=== PATIENT | female | born 1950 | race Caucasian/White ===

== ENCOUNTER → 2016-10-28 | Outpatient (CLI) | payer OTHER ==
[~2016-10-28] MED LIST: ADVIL200 MG PO; ESTRACE PO; HCTZ 25MG TAB25 MG PO; LODINE500 MG PO; PRINIVIL10 MG PO; PROZAC 20MG20 MG PO; PROZAC40 MG PO; REXULTI0.5 MG PO; TOPAMAX50 MG PO; WELLBUTRIN PO; WELLBUTRIN XL300 M1 PO; ZOCOR 20MG20 MG PO; ZOCOR 40MG40 MG PO; ZOLOFT 100MG100 MG; ZOLOFT100 MG PO
== END ==
LOC: BHSO 08:14
DX: F33.42 Major depressive disorder, recurrent, in full remission (principal)

== ENCOUNTER → 2016-11-09 | Outpatient (CLI) | payer OTHER | LOC: BHSO 14:47 | DX: F33.41 Major depressive disorder, recurrent, in partial remission (principal) ==

== ENCOUNTER → 2016-11-23 | Outpatient (CLI) | payer OTHER | LOC: BHSO 08:13 | DX: F33.42 Major depressive disorder, recurrent, in full remission (principal) ==

== ENCOUNTER → 2017-01-25 | Outpatient (CLI) | payer OTHER | LOC: BHSO 13:49 | DX: F33.41 Major depressive disorder, recurrent, in partial remission (principal) ==

== ENCOUNTER → 2017-02-13 | Outpatient (CLI) | payer OTHER | LOC: COL.RAD 07:47 | DX: E34.9 Endocrine disorder, unspecified (principal); E83.52 Hypercalcemia | CPT/HCPCS: A9500 ==

== ENCOUNTER → 2017-03-29 | Outpatient (CLI) | payer OTHER | LOC: BHSO 15:16 | DX: F33.2 Major depressive disorder, recurrent severe without psychotic features (principal) ==

== ENCOUNTER → 2017-04-03 | Outpatient (CLI) | payer OTHER | LOC: MC.RAD 07:30 | DX: R92.2 Inconclusive mammogram (principal); N63 Unspecified lump in breast ==

== ENCOUNTER 2017-04-06 17:32 | Emergency (ER) | payer OTHER ==
[2008-09-22 21:37] VITALS: BP 119/71
[~2017-04-06] VITALS: Ht 167.6 cm; Wt 85.0 kg
[2017-04-06 17:40] VITALS: TEMP 99.3
[2017-04-06 18:19] LABS: BASO % 0.5 % (0.0-2.0); EOS # 0.2 (0.0-0.7); GRAN # 3.6 (1.4-6.5); GRAN % 44.9 % (42.2-75.2); HEMATOCRIT 42.7 % (37.0-47.0); HEMOGLOBIN 14.4 g/dl (12.5-16.0); LYMPH # 3.6 (1.2-3.4); LYMPH % 44.6 % (20.0-51.0); MEAN CELL VOLUME 87 fl (80.0-100.0); MEAN CORPUSCULAR HEMOGLOBIN 29 pg (27.0-31.0); MEAN CORPUSCULAR HGB CONC 34 g/dl (33.0-37.0); MEAN PLATELET VOLUME 10.8 fl (7.4-10.4); MONO # 0.6 (0.1-0.6); MONO % 7.6 % (1.7-9.3); PLATELET COUNT 285 K/mm3 (130-400); RED BLOOD COUNT 4.93 M/mm3 (4.10-5.30); REDCELL DISTRIBUTION WIDTH-CV 12.6 % (11.5-14.5); WHITE BLOOD COUNT 8.1 K/mm3 (4.8-10.8)
[2017-04-06 18:37] LABS: AMPHETAMINE URINE NEGATIVE; BARBITURATES URINE NEGATIVE; BENZODIAZEPINES URINE NEGATIVE; BUPRENORPHINE URINE NEGATIVE; METHADONE URINE NEGATIVE; OPIATES URINE NEGATIVE; OXYCODONE URINE NEGATIVE; PHENCYCLIDINE URINE NEGATIVE; PROPOXYPHENE URINE NEGATIVE; THC CANNABINOIDS URINE NEGATIVE
[2017-04-06 18:48] LABS: ADJUSTED CALCIUM 9.7 mg/dL (8.4-10.2); ALANINE AMINOTRANSFERASE 25 U/L (9-52); ALBUMIN 4.6 gm/dL (3.5-5.0); ALKALINE PHOSPHATASE 83 U/L (50-136); ANION GAP 15 mmol/L (7-16); BILIRUBIN,TOTAL 0.6 mg/dL (0.0-1.0); BLOOD UREA NITROGEN 15 mg/dL (7-17); CALCIUM 10.2 mg/dL (8.4-10.2); CARBON DIOXIDE 19 mmol/L (22-30); CHLORIDE 109 mmol/L (98-107); CREATININE, serum 1.04 mg/dL (0.52-1.25); GLUCOSE 89 mg/dL (74-106); POTASSIUM 3.5 mmol/L (3.4-5.0); SODIUM 142 mmol/L (137-145); TOTAL PROTEIN 7.4 gm/dL (6.4-8.2)
[2017-04-06 18:49] LABS: ACETAMINOPHEN < 10 ug/mL (10-30); SALICYLATE < 1.0 mg/dL
[2017-04-06 22:47] VITALS: BP 118/61; PULSE 76
== END 2017-04-07 | disposition short-term general hospital (02) ==
LOC: COL.ER 17:32
PROVIDERS: Nurse Practitioner
DX: F32.9 Major depressive disorder, single episode, unspecified (principal); F41.9 Anxiety disorder, unspecified; Z87.891 Personal history of nicotine dependence; Z90.710 Acquired absence of both cervix and uterus; Z90.49 Acquired absence of other specified parts of digestive tract; Z90.89 Acquired absence of other organs

== ENCOUNTER → 2017-04-21 | Outpatient (CLI) | payer OTHER | LOC: BHSO 09:55 | DX: F33.41 Major depressive disorder, recurrent, in partial remission (principal) ==

== ENCOUNTER → 2017-05-05 | Outpatient (CLI) | payer OTHER | LOC: BHSO 15:35 | DX: F33.2 Major depressive disorder, recurrent severe without psychotic features (principal) ==

== ENCOUNTER → 2017-05-11 | Outpatient (CLI) | payer OTHER | LOC: BHSO 15:08 | DX: F33.2 Major depressive disorder, recurrent severe without psychotic features (principal) ==

== ENCOUNTER → 2017-06-05 | Outpatient (CLI) | payer OTHER | LOC: BHSO 15:38 | DX: F33.1 Major depressive disorder, recurrent, moderate (principal) ==

== ENCOUNTER 2017-06-09 16:00 | Outpatient (RCR) | payer OTHER | END 2017-06-13 09:06 | LOC: WSPT 16:00 | DX: M75.21 Bicipital tendinitis, right shoulder (principal); M77.9 Enthesopathy, unspecified ==

== ENCOUNTER → 2017-07-13 | Outpatient (CLI) | payer OTHER | LOC: BHSO 10:33 | DX: F33.1 Major depressive disorder, recurrent, moderate (principal) ==

== ENCOUNTER → 2017-07-26 | Outpatient (CLI) | payer OTHER | LOC: BHSO 15:27 | DX: F31.81 Bipolar II disorder (principal) ==

== ENCOUNTER → 2017-08-15 | Outpatient (CLI) | payer OTHER | LOC: BHSO 09:12 | DX: F41.1 Generalized anxiety disorder (principal) ==

== ENCOUNTER → 2017-09-12 | Outpatient (CLI) | payer MEDICARE | LOC: BHSO 09:55 | DX: F33.1 Major depressive disorder, recurrent, moderate (principal) | CPT/HCPCS: G0463 ==

== ENCOUNTER → 2017-10-18 | Outpatient (CLI) | payer MEDICARE | LOC: COL.RAD 14:21 | DX: R53.1 Weakness (principal) ==

== ENCOUNTER → 2017-10-19 | Outpatient (CLI) | payer MEDICARE ==
[2017-10-19 10:47] LABS: BASO # 0.1 (0.0-0.2); BASO % 0.8 % (0.0-2.0); EOS # 0.3 (0.0-0.7); EOS % 3.9 % (0-4.0); GRAN # 4.6 (1.4-6.5); GRAN % 57.9 % (42.2-75.2); HEMATOCRIT 42.2 % (37.0-47.0); HEMOGLOBIN 13.6 g/dl (12.5-16.0); LYMPH # 2.4 (1.2-3.4); LYMPH % 29.4 % (20.0-51.0); MEAN CELL VOLUME 87 fl (80.0-100.0); MEAN CORPUSCULAR HEMOGLOBIN 28 pg (27.0-31.0); MEAN CORPUSCULAR HGB CONC 32 g/dl (33.0-37.0); MEAN PLATELET VOLUME 11.2 fl (7.4-10.4); MONO # 0.6 (0.1-0.6); MONO % 7.4 % (1.7-9.3); PLATELET COUNT 227 K/mm3 (130-400); RED BLOOD COUNT 4.83 M/mm3 (4.10-5.30); REDCELL DISTRIBUTION WIDTH-CV 13.8 % (11.5-14.5)
[2017-10-19 11:02] LABS: ALANINE AMINOTRANSFERASE 21 U/L (9-52); ALBUMIN 4.3 gm/dL (3.5-5.0); ALKALINE PHOSPHATASE 101 U/L (50-136); ANION GAP 10 mmol/L (7-16); AST,SGOT 15 U/L (15-37); BILIRUBIN,TOTAL 0.3 mg/dL (0.0-1.0); BLOOD UREA NITROGEN 28 mg/dL (7-17); CALCIUM 10.4 mg/dL (8.4-10.2); CARBON DIOXIDE 22 mmol/L (22-30); CHLORIDE 108 mmol/L (98-107); CREATININE, serum 0.96 mg/dL (0.52-1.25); GLUCOSE 115 mg/dL (74-106); POTASSIUM 4.3 mmol/L (3.4-5.0); SODIUM 140 mmol/L (137-145); TOTAL PROTEIN 6.9 gm/dL (6.4-8.2)
[2017-10-19 11:03] LABS: C-REACTIVE PROTEIN < 0.5 mg/dL (0.0-0.9)
[2017-10-19 11:20] LABS: ERYTHROCYTE SEDIMENTATION RATE 7 mm/hr (0-30)
== END ==
LOC: COL.LAB 10:17
PROVIDERS: Internal Medicine
DX: R53.1 Weakness (principal)

== ENCOUNTER → 2017-10-27 | Outpatient (CLI) | payer MEDICARE | LOC: BHSO 08:20 | DX: F33.41 Major depressive disorder, recurrent, in partial remission (principal) | CPT/HCPCS: G0463 ==

== ENCOUNTER → 2017-12-15 | Outpatient (CLI) | payer MEDICARE | LOC: BHSO 08:15 | DX: F33.41 Major depressive disorder, recurrent, in partial remission (principal) | CPT/HCPCS: G0463 ==

== ENCOUNTER → 2018-01-30 | Outpatient (CLI) | payer MEDICARE | LOC: BHSO 08:12 | DX: F33.41 Major depressive disorder, recurrent, in partial remission (principal) | CPT/HCPCS: G0463 ==

== ENCOUNTER 2018-02-14 07:30 | Outpatient (RCR) | payer MEDICARE | END 2018-03-05 08:08 | disposition home or self-care (01) | LOC: WSPT 07:30 | DX: R26.0 Ataxic gait (principal); R53.1 Weakness | CPT/HCPCS: G8978-GP; G8979-GP ==

== ENCOUNTER → 2018-05-31 | Outpatient (CLI) | payer MEDICARE | LOC: MC.RAD 08:00 | DX: Z12.31 Encounter for screening mammogram for malignant neoplasm of breast (principal); Z78.0 Asymptomatic menopausal state ==

== ENCOUNTER → 2018-06-19 | Outpatient (CLI) | payer MEDICARE | LOC: BHSO 12:53 | DX: F33.42 Major depressive disorder, recurrent, in full remission (principal) | CPT/HCPCS: G0463 ==

== ENCOUNTER → 2018-09-12 | Outpatient (CLI) | payer MEDICARE | LOC: BHSO 08:51 | DX: F33.42 Major depressive disorder, recurrent, in full remission (principal) | CPT/HCPCS: G0463 ==

== ENCOUNTER 2019-01-27 12:09 | Emergency (ER) | payer MEDICARE ==
[2008-09-22 21:37] VITALS: BP 119/71
[~2019-01-27] VITALS: Ht 167.6 cm; Wt 78.2 kg
[2019-01-27] MEDS ORDERED: CYMBALTA 30MG30 MG PO (12:35)
[2019-01-27] MEDS ORDERED: FOSAMAX 70MG TA70 MG PO (12:35)
[2019-01-27 12:54] LABS: COLLECTION METHOD CLEAN CATCH
[2019-01-27 13:06] LABS: BASO # 0.1 (0.0-0.2); BASO % 0.8 % (0.0-2.0); EOS # 0.4 (0.0-0.7); EOS % 3.2 % (0-4.0); GRAN # 6.4 (1.4-6.5); GRAN % 57.2 % (42.2-75.2); HEMATOCRIT 47.9 % (37.0-47.0); HEMOGLOBIN 15.8 g/dl (12.5-16.0); LYMPH # 3.4 (1.2-3.4); LYMPH % 30.1 % (20.0-51.0); MEAN CELL VOLUME 89 fl (80.0-100.0); MEAN CORPUSCULAR HEMOGLOBIN 29 pg (27.0-31.0); MEAN CORPUSCULAR HGB CONC 33 g/dl (33.0-37.0); MEAN PLATELET VOLUME 11.6 fl (7.4-10.4); MONO # 0.9 (0.1-0.6); MONO % 8.2 % (1.7-9.3); PLATELET COUNT 288 K/mm3 (130-400); REDCELL DISTRIBUTION WIDTH-CV 13.4 % (11.5-14.5)
[2019-01-27 13:13] LABS: TRICYCLIC ANTIDEPRESS URINE NEGATIVE
[2019-01-27 13:19] LABS: MUCOUS Present /lpf; PH 5 (5-8); SQUAMOUS EPITHELIAL 0-2 /hpf; URINE APPEARANCE Hazy; URINE BACTERIA None Seen /hpf; URINE BILIRUBIN Negative (NEGATIVE); URINE BLOOD Negative (NEGATIVE); URINE CALCIUM OXALATE CRYSTAL Present /hpf; URINE COLOR Yellow; URINE GLUCOSE Negative (NEGATIVE); URINE KETONE Trace (NEGATIVE); URINE LEUKOCYTE ESTERASE 2+ (NEGATIVE); URINE NITRATE Negative (NEGATIVE); URINE PROTEIN(semi-quant) Negative (NEGATIVE); URINE UROBILINOGEN Negative (NEGATIVE)
[2019-01-27 13:20] LABS: ALANINE AMINOTRANSFERASE 19 U/L (9-52); ALBUMIN 4.8 gm/dL (3.5-5.0); ALKALINE PHOSPHATASE 85 U/L (50-136); ANION GAP 16 mmol/L (7-16); AST,SGOT 24 U/L (15-37); BILIRUBIN,TOTAL 0.4 mg/dL (0.0-1.0); BLOOD UREA NITROGEN 23 mg/dL (7-17); CARBON DIOXIDE 18 mmol/L (22-30); CHLORIDE 107 mmol/L (98-107); CREATININE, serum 1.08 (0.52-1.25); GLUCOSE 132 mg/dL (74-106); POTASSIUM 4.7 mmol/L (3.4-5.0); SODIUM 141 mmol/L (137-145); TOTAL PROTEIN 8.1 gm/dL (6.4-8.2)
[2019-01-27 13:22] LABS: ACETAMINOPHEN < 10 ug/mL (10-30); ALCOHOL(ethanol),MEDICAL < 10 mg/dL; SALICYLATE < 1.0 mg/dL
[2019-01-28 09:27] VITALS: TEMP 98.5
[2019-01-28 10:43] VITALS: BP 115/60; PULSE 80
== END 2019-01-28 10:30 ==
LOC: COL.ER 12:09
PROVIDERS: Nurse Practitioner
DX: R45.851 Suicidal ideations (principal); F32.9 Major depressive disorder, single episode, unspecified; F41.9 Anxiety disorder, unspecified

== ENCOUNTER → 2019-02-07 | Outpatient (CLI) | payer MEDICARE ==
[~2019-02-07] MED LIST changes: +CYMBALTA 30MG30 MG PO; +FOSAMAX 70MG TA70 MG PO
== END ==
LOC: BHSO 08:55
DX: F33.42 Major depressive disorder, recurrent, in full remission (principal)
CPT/HCPCS: G0463

== ENCOUNTER → 2019-03-12 | Outpatient (CLI) | payer MEDICARE | LOC: BHSO 08:53 | DX: F33.42 Major depressive disorder, recurrent, in full remission (principal) | CPT/HCPCS: G0463 ==

== ENCOUNTER → 2019-05-09 | Outpatient (CLI) | payer MEDICARE | LOC: BHSO 13:23 | DX: F33.2 Major depressive disorder, recurrent severe without psychotic features (principal) | CPT/HCPCS: G0463 ==

== ENCOUNTER → 2019-05-21 | Outpatient (CLI) | payer MEDICARE | LOC: BHSO 13:13 | DX: F33.1 Major depressive disorder, recurrent, moderate (principal) | CPT/HCPCS: G0463 ==

== ENCOUNTER → 2019-06-05 | Outpatient (CLI) | payer MEDICARE | LOC: BHSO 10:55 | DX: F33.41 Major depressive disorder, recurrent, in partial remission (principal) | CPT/HCPCS: G0463 ==

== ENCOUNTER 2019-07-25 22:44 | Observation (INO) | payer MEDICARE ==
[~2019-07-25] VITALS: Ht 167.6 cm; Wt 79.4 kg
[2019-07-25] MEDS ORDERED: RISPERDAL2 MG PO (22:49)
[2019-07-25] MEDS ORDERED: DESYREL 100MG100 MG PO (22:49)
[2019-07-25 23:11] LABS: BASO % 0.3 % (0.0-2.0); EOS # 0.1 (0.0-0.7); GRAN # 9.5 (1.4-6.5); GRAN % 83.2 % (42.2-75.2); HEMATOCRIT 46.3 % (37.0-47.0); HEMOGLOBIN 15.5 g/dl (12.5-16.0); LYMPH # 1.3 (1.2-3.4); MEAN CELL VOLUME 88 fl (80.0-100.0); MEAN CORPUSCULAR HEMOGLOBIN 30 pg (27.0-31.0); MEAN CORPUSCULAR HGB CONC 34 g/dl (33.0-37.0); MEAN PLATELET VOLUME 10.9 fl (7.4-10.4); MONO # 0.5 (0.1-0.6); PLATELET COUNT 253 K/mm3 (130-400); RED BLOOD COUNT 5.26 M/mm3 (4.10-5.30); REDCELL DISTRIBUTION WIDTH-CV 13.4 % (11.5-14.5)
[2019-07-25 23:18] LABS: ALANINE AMINOTRANSFERASE 80 U/L (9-52); ALBUMIN 4.7 gm/dL (3.5-5.0); ALKALINE PHOSPHATASE 84 U/L (50-136); ANION GAP 14 mmol/L (7-16); AST,SGOT 162 U/L (15-37); BILIRUBIN,TOTAL 0.7 mg/dL (0.0-1.0); BLOOD UREA NITROGEN 22 mg/dL (7-17); CALCIUM 9.8 mg/dL (8.4-10.2); CARBON DIOXIDE 18 mmol/L (22-30); CHLORIDE 108 mmol/L (98-107); CREATININE, serum 1.02 (0.52-1.25); GLUCOSE 146 mg/dL (74-106); LIPASE 143 U/L (23-300); POTASSIUM 4.1 mmol/L (3.4-5.0); SODIUM 140 mmol/L (137-145); TOTAL PROTEIN 7.7 gm/dL (6.4-8.2)
[2019-07-25 23:20] LABS: INR 0.9 (0.8-3.0); PROTHROMBIN TIME 10.4 SECONDS (9.7-12.8)
[2019-07-25 23:32] LABS: TROPONIN-I < 0.012 ng/mL (0.000-0.035)
[2019-07-26] VITALS (7 sets, daily range): BP systolic 93–129; BP diastolic 46–62; PULSE 89–102; TEMP 98.2–101.6
[2019-07-26 01:53] LABS: COLLECTION METHOD CLEAN CATCH
[2019-07-26 02:09] LABS: MUCOUS Present /lpf; PH 7 (5-8); SQUAMOUS EPITHELIAL None Seen /hpf; URINE APPEARANCE Clear; URINE BACTERIA None Seen /hpf; URINE BILIRUBIN Negative (NEGATIVE); URINE BLOOD Negative (NEGATIVE); URINE COLOR Yellow; URINE GLUCOSE Negative (NEGATIVE); URINE KETONE Negative (NEGATIVE); URINE LEUKOCYTE ESTERASE Negative (NEGATIVE); URINE NITRATE Negative (NEGATIVE); URINE PROTEIN(semi-quant) Negative (NEGATIVE); URINE RBC 0-2 /hpf; URINE UROBILINOGEN Negative (NEGATIVE)
--- NOTE | 2019-07-26 03:55 | NUR ---
awake resting in bed, bedside shift report received from FILIPPO Gray
--- NOTE | 2019-07-26 04:00 | NUR ---
RECEIVED FROM ED PER CART, 69 Y/O FEMALE WITH DX PELVIC ABSCESS, SMALL BOWEL ILEUS. IS ALERT AND ORIENTED X4. AMBULATES TO BATHROOM WITH STANDBY ASSIST, VOIDS 200CC OF YELLOW URINE. BACK TO BED. REPORTS PAIN 1/10, IS NAUSEATED. IVF TO LEFT FOREARM AT 125CC/HR WITHOUT REDNESS OR SWELLING.
[2019-07-26] MEDS ORDERED: WELLBUTRIN SR150 M1 PO (04:17)
[2019-07-26] MEDS ORDERED: CYMBALTA 60MG60 MG PO (04:19)
[2019-07-26] MEDS ORDERED: BUSPAR DIVIDOSE15 MG PO (04:20)
[2019-07-26] MEDS ORDERED: DESYREL 50MG50 MG PO (04:20)
--- NOTE | 2019-07-26 04:35 | NUR ---
HAS 100CC OF BILE EMESIS AT THIS TIME.
[2019-07-26] MEDS ORDERED: WELLBUTRIN XL150 MG PO (05:28)
--- NOTE | 2019-07-26 06:10 | NUR ---
PATIENT RESTING, DENIES NAUSEA OR PAIN AT THIS TIME.
--- NOTE | 2019-07-26 07:14 | NUR ---
Pt resting in bed with eyes closed. VSS. Pt reports she has a headache 5 out of10. Cold towel placed on forehead. Pt states she has not passed gas in a few days. Last BM was 07/24/19. Call light within reach.
--- NOTE | 2019-07-26 08:55 | NUR ---
resting in bed lying on right side, states pain is better since having dilaudid given earlier by student, denies needs at this time
--- NOTE | 2019-07-26 09:40 | NUR ---
Dr Banerjee in to see patient
--- NOTE | 2019-07-26 09:43 | NUR ---
PATRICK met with the patient to discuss discharge plan. The patient lives alone in [place]. She states that her son, Jos Schaffer (ph#[phone]), lives nearby. She reports independence with ADLs and has a walker and two canes. The patient's PCP is Dr. Mike Villa and she receives her medications at [facility]. She reports no difficulties obtaining her meds. The patient does not have advanced directives in EMR, but she states that she does have them completed and that Dr. Villa's office should have a copy. She states that her son's: Jos and Law are her DPOA-HC. SW contacted and requested a copy of her DPOA-HC from Rea at Dr. Villa's office. The patient plans to return home upon discharge. No additional needs at this time.
[2019-07-26 10:08] LABS: BASO % 0.2 % (0.0-2.0); GRAN # 3.3 (1.4-6.5); GRAN % 81.6 % (42.2-75.2); HEMATOCRIT 38.3 % (37.0-47.0); LYMPH # 0.4 (1.2-3.4); LYMPH % 9.8 % (20.0-51.0); MEAN CELL VOLUME 90 fl (80.0-100.0); MEAN CORPUSCULAR HEMOGLOBIN 29 pg (27.0-31.0); MEAN CORPUSCULAR HGB CONC 33 g/dl (33.0-37.0); MEAN PLATELET VOLUME 10.6 fl (7.4-10.4); MONO # 0.3 (0.1-0.6); MONO % 6.9 % (1.7-9.3); PLATELET COUNT 177 K/mm3 (130-400); RED BLOOD COUNT 4.25 M/mm3 (4.10-5.30); REDCELL DISTRIBUTION WIDTH-CV 13.6 % (11.5-14.5)
[2019-07-26 10:10] LABS: HEMOGLOBIN 12.5 g/dl (12.5-16.0)
[2019-07-26 10:15] LABS: CALCIUM 7.8 mg/dL (8.4-10.2); CREATININE, serum 0.94 (0.52-1.25); POTASSIUM 4.2 mmol/L (3.4-5.0)
--- NOTE | 2019-07-26 12:41 | NUR ---
to radiology per WC for CT scan
--- NOTE | 2019-07-26 14:52 | NUR ---
appears to be sleeping, in bed on right side, eyes closed, resp quiet and easy
--- NOTE | 2019-07-26 15:41 | NUR ---
resting in bed, Temp was 101.6, patient denies any pain or feeling worse, only c/o headache, encouraged to C&DB and verbalizes understanding, will recheck
--- NOTE | 2019-07-26 16:04 | NUR ---
Remp rechecked and is 101.2
--- NOTE | 2019-07-26 16:08 | NUR ---
Dr Banerjee notified of patient's Temp, orders received
--- NOTE | 2019-07-26 16:20 | NUR ---
medicated with tylenol 650mg for Temp >101 and c/os headache
--- NOTE | 2019-07-26 17:52 | NUR ---
sitting up on side of bed having full liquids, tolerating well at this time, IV to INT and will assist in shower after finished eating
--- NOTE | 2019-07-26 17:59 | NUR ---
Dr Banerjee was in and saw patient
--- NOTE | 2019-07-26 18:07 | NUR ---
assisted up to shower
--- NOTE | 2019-07-26 18:27 | NUR ---
out of shower and IV fluids restarted, son in to visit
--- NOTE | 2019-07-26 18:55 | NUR ---
bedside shift report given to FILIPPO Gray
--- NOTE | 2019-07-26 20:00 | NUR ---
Patient resting in bed. Denies pain or nausea. IVF infusing to left forearm without redness or swelling.
[2019-07-27 00:13] VITALS: BP 111/59; PULSE 81; TEMP 99.5
--- NOTE | 2019-07-27 00:25 | NUR ---
Patient complains of headache, Tylenol 650mg po given at this time
[2019-07-27 03:58] VITALS: BP 117/55; PULSE 76; TEMP 98.9
--- NOTE | 2019-07-27 04:00 | NUR ---
Patient reports headache is better. No complaints offered at this time.
[2019-07-27 07:13] LABS: BASO % 0.4 % (0.0-2.0); EOS # 0.2 (0.0-0.7); EOS % 4.8 % (0-4.0); GRAN # 2.8 (1.4-6.5); HEMOGLOBIN 11.3 g/dl (12.5-16.0); LYMPH # 1.3 (1.2-3.4); LYMPH % 26.4 % (20.0-51.0); MEAN CELL VOLUME 91 fl (80.0-100.0); MEAN CORPUSCULAR HEMOGLOBIN 30 pg (27.0-31.0); MEAN CORPUSCULAR HGB CONC 33 g/dl (33.0-37.0); MEAN PLATELET VOLUME 11.9 fl (7.4-10.4); MONO # 0.5 (0.1-0.6); PLATELET COUNT 145 K/mm3 (130-400); RED BLOOD COUNT 3.79 M/mm3 (4.10-5.30); REDCELL DISTRIBUTION WIDTH-CV 13.7 % (11.5-14.5)
[2019-07-27 07:18] LABS: HEMATOCRIT 34.4 % (37.0-47.0)
[2019-07-27 08:24] VITALS: BP 114/67; PULSE 75; TEMP 98.4
--- NOTE | 2019-07-27 08:45 | NUR ---
Pt resting in bed upon entering room. She was in the restroom during bedside shift report. She does have complaints of a headache, which I brought Tylenol for. She did tolerate a small amount of her breakfast. She is steady on her feet and independent in the room. She is hoping to get to go home today. Will continue to monitor
== END 2019-07-27 11:45 | disposition home or self-care (01) ==
LOC: COL.ER 22:44 → SURG 07-26 01:20
PROVIDERS: Emergency Medicine; ADMIT Surgery
DX: R10.13 Epigastric pain (principal); F32.9 Major depressive disorder, single episode, unspecified; E78.00 Pure hypercholesterolemia, unspecified; Z90.710 Acquired absence of both cervix and uterus; Z90.49 Acquired absence of other specified parts of digestive tract; Z87.891 Personal history of nicotine dependence; Z88.8 Allergy status to other drugs, medicaments and biological substances
CPT/HCPCS: G0378; J1170; J2405; J2543; J3010; J7030; Q9967

== ENCOUNTER → 2020-01-22 | Outpatient (CLI) | payer MEDICARE ==
[~2020-01-22] MED LIST changes: +BUSPAR DIVIDOSE15 MG PO; +CYMBALTA 60MG60 MG PO; +DESYREL 100MG100 MG PO; +DESYREL 50MG50 MG PO; +RISPERDAL2 MG PO; +WELLBUTRIN SR150 M1 PO; +WELLBUTRIN XL150 MG PO
== END ==
LOC: BHSO 08:56
DX: F33.42 Major depressive disorder, recurrent, in full remission (principal)
CPT/HCPCS: G0463

== ENCOUNTER → 2020-04-28 | Outpatient (CLI) | payer MEDICARE | LOC: COL.LAB 15:04 | DX: E55.9 Vitamin D deficiency, unspecified (principal); R19.7 Diarrhea, unspecified ==

== ENCOUNTER → 2020-08-11 | Outpatient (CLI) | payer MEDICARE ==
[2020-08-11 16:28] LABS: BASO % 0.5 % (0.0-2.0); EOS # 0.1 (0.0-0.7); EOS % 1.7 % (0-4.0); GRAN % 45.9 % (42.2-75.2); HEMATOCRIT 41.8 % (37.0-47.0); HEMOGLOBIN 13.6 g/dl (12.5-16.0); LYMPH # 2.7 (1.2-3.4); LYMPH % 41.5 % (20.0-51.0); MEAN CELL VOLUME 89 fl (80.0-100.0); MEAN CORPUSCULAR HEMOGLOBIN 29 pg (27.0-31.0); MEAN CORPUSCULAR HGB CONC 33 g/dl (33.0-37.0); MEAN PLATELET VOLUME 10.6 fl (7.4-10.4); MONO # 0.7 (0.1-0.6); MONO % 10.1 % (1.7-9.3); PLATELET COUNT 273 K/mm3 (130-400); RED BLOOD COUNT 4.72 M/mm3 (4.10-5.30); REDCELL DISTRIBUTION WIDTH-CV 13.7 % (11.5-14.5)
[2020-08-11 16:49] LABS: IRON,SERUM 93 ug/dL (35-150); PARTIAL THROMBOPLASTIN TIME 40.6 SECONDS (26.0-37.0); PROTHROMBIN TIME 11.3 SECONDS (9.7-12.8); TOTAL IRON BINDING CAPACITY 319 ug/dL (265-497)
[2020-08-12 00:27] LABS: EBV EARLY ANTIGEN IGG Positive (()); EBV NUCLEAR ANTIGEN IGG Negative (())
[2020-08-12 02:01] LABS: EBV IGM AB Negative (())
[2020-08-12 12:00] LABS: ANA SCREEN with REFLEX Negative (Negative)
[2020-08-13 15:23] LABS: ANTISMOOTH MUSCLE ANTIBODY Negative (Negative)
== END ==
LOC: COL.LAB 15:22
PROVIDERS: Internal Medicine
DX: Z01.89 Encounter for other specified special examinations (principal)

== ENCOUNTER → 2020-08-17 | Outpatient (CLI) | payer MEDICARE ==
[2020-08-17 13:02] LABS: ALBUMIN 4.3 gm/dL (3.5-5.0); BILIRUBIN,TOTAL 0.5 mg/dL (0.0-1.0); CALCIUM 10.7 mg/dL (8.4-10.2); CREATININE, serum 0.87 (0.52-1.25); POTASSIUM 3.2 mmol/L (3.4-5.0); TOTAL PROTEIN 7.1 gm/dL (6.4-8.2)
[2020-08-19 04:06] LABS: CERULOPLASMIN 37 mg/dL (20-60)
[2020-08-19 12:37] LABS: A1A PHENOTYPE 205 mg/dL (())
== END ==
LOC: COL.LAB 12:00
DX: K52.831 Collagenous colitis (principal); R74.8 Abnormal levels of other serum enzymes

== ENCOUNTER → 2020-10-28 | Outpatient (CLI) | payer MEDICARE ==
[2008-09-22 21:37] VITALS: BP 119/71
[~2020-10-28] VITALS: Ht 167.6 cm; Wt 72.6 kg
[2020-10-28] VITALS (10 sets, daily range): BP systolic 122–142; BP diastolic 71–91; PULSE 69–80
[~2020-10-28] MED LIST changes: +B-121000 MCG PO; +CALCIUM CARBON650 M2 PO; +PHARMASSURE ZIN50 MG PO; +PROBIOTIC ACID1 EAC3 PO; +VITAMIN D250 MCG PO
--- NOTE | 2020-10-28 13:05 | NUR ---
PT TAKEN TO CT AND POSITIONED ON TABLE. MONITORING EEQUIPMENT PLACED
--- NOTE | 2020-10-28 13:25 | NUR ---
PT TAKEN TO RAD HOLDING PER WHEELCHAIR
[2020-10-29 07:03] VITALS: BP 133/99; PULSE 88
== END ==
LOC: COL.RAD 11:48
DX: R94.5 Abnormal results of liver function studies (principal); K76.89 Other specified diseases of liver; R74.8 Abnormal levels of other serum enzymes; R19.7 Diarrhea, unspecified; K52.831 Collagenous colitis
CPT/HCPCS: 32108

== ENCOUNTER 2022-02-08 14:09 | Emergency (ER) | payer MEDICARE ==
[~2022-02-08] VITALS: Ht 167.6 cm; Wt 75.0 kg
[2022-02-08 14:21] VITALS: TEMP 98.1
[2022-02-08 14:54] LABS: BASO # 0.1 K/mm3 (0.0-0.2); BASO % 0.6 % (0.0-2.0); EOS # 0.2 K/mm3 (0.0-0.7); EOS % 1.9 % (0.0-4.0); GRAN # 4.9 K/mm3 (1.4-6.5); GRAN % 56.2 % (42.2-75.2); HEMATOCRIT 41.4 % (37.0-47.0); HEMOGLOBIN 13.9 g/dl (12.5-16.0); LYMPH # 2.8 K/mm3 (1.2-3.4); LYMPH % 32.4 % (20.0-51.0); MEAN CELL VOLUME 86 fl (80.0-100.0); MEAN CORPUSCULAR HEMOGLOBIN 29 pg (27-31); MEAN CORPUSCULAR HGB CONC 34 g/dl (33.0-37.0); MEAN PLATELET VOLUME 11.5 fl (7.4-10.4); MONO # 0.7 K/mm3 (0.1-0.6); PLATELET COUNT 237 K/mm3 (130-400); RED BLOOD COUNT 4.82 M/mm3 (4.10-5.30); REDCELL DISTRIBUTION WIDTH-CV 13.7 % (11.5-14.5)
[2022-02-08 14:57] LABS: INR 1.1 (0.8-3.0); PROTHROMBIN TIME 12.5 SECONDS (9.7-12.8)
[2022-02-08 15:08] LABS: BILIRUBIN,TOTAL 0.4 mg/dL (0.2-1.2); CREATININE, serum 0.92 mg/dL (0.57-1.11); POTASSIUM 3.3 mmol/L (3.5-4.5); TOTAL PROTEIN 6.8 gm/dL (6.2-8.1)
[2022-02-08] MEDS ORDERED: EFFEXOR XR37.5 MG/CA PO (15:11)
[2022-02-08 16:02] VITALS: BP 143/89; PULSE 85
== END 2022-02-08 16:07 | disposition home or self-care (01) ==
LOC: COL.ER 14:09
PROVIDERS: Personal Emergency Response Attendant
DX: R20.2 Paresthesia of skin (principal); Z98.890 Other specified postprocedural states; Z28.310 Unvaccinated for COVID-19

== ENCOUNTER → 2022-02-28 | Outpatient (CLI) | payer MEDICARE ==
[~2022-02-28] MED LIST changes: +EFFEXOR XR37.5 MG/CA PO
== END ==
LOC: COL.RAD 10:48
DX: K52.831 Collagenous colitis (principal)
CPT/HCPCS: Q9967

== ENCOUNTER 2022-04-14 13:48 | Outpatient (CLI) | payer MEDICARE ==
[2008-09-22 21:37] VITALS: BP 119/71
[2022-04-14] VITALS (8 sets, daily range): BP systolic 125–148; BP diastolic 51–85; PULSE 67–85; TEMP 96.8
[~2022-04-14] VITALS: Ht 167.6 cm; Wt 68.0 kg
[~2022-04-14 13:48] MED LIST changes: -CALCIUM CARBON650 M2 PO; +OSCAL 500 TAB500 MG PO
[2022-04-14] MEDS ORDERED: MASON NATURAL2000 IU PO (15:01)
--- NOTE | 2022-04-14 16:05 | NUR ---
Pt tolerated infusion and 1 hr observation period without issue. IV DC'd, site wrapped with coban. Pt escorted out from dept with steady gait.
== END 2022-04-14 16:26 | disposition home or self-care (01) ==
LOC: EUO 13:48
DX: U07.1 COVID-19 (principal); K52.831 Collagenous colitis; E66.9 Obesity, unspecified
CPT/HCPCS: M0222; Q0222